=== PATIENT | male | born 1945 ===

== ENCOUNTER 2021-08-13 17:19 | Inpatient (IN) ==
[2021-08-13] MEDS ORDERED: Artificial Tears SOLN 15 ML BOTTLE BOTH EYES PRN (20:19)
[2021-08-13] MEDS ORDERED: Naloxone 0.4 MG/ML INJ IVP PRN (20:19)
[2021-08-13] MEDS ORDERED: Dexamethasone Sodium Phos/PF 10 MG/ML VIAL IVP ONE (20:19)
[2021-08-13] MEDS ORDERED: Ondansetron 4 MG/2 ML VIAL IVP PRN (20:19)
[2021-08-13] MEDS: Pantoprazole 40 MG VIAL IVP SCH (20:45)
[2021-08-13] MEDS: Chlorhexidine Rinse 15 ML MOUTHWASH MM SCH (20:45)
[2021-08-13] MEDS: D5% in Water 1,000 ML IVC SCH (20:46)
[2021-08-13] MEDS: FentaNYL (PF) 1,000 MCG/100 ML IV.SOLN IVC SCH (20:46)
[2021-08-13] MEDS: Dexmedetomidine HCl 400 MCG/100 ML MLS IVC SCH (20:47)
[2021-08-13 22:07] LABS: Hematocrit 44.3 % (37.5-50.1); Hemoglobin 14.2 g/dL (12.9-16.9); Mean Corpuscular HGB Conc 32.1 g/dL (31.6-35.5); Mean Corpuscular Hemoglobin 31.5 pg (28.0-33.3); Mean Corpuscular Volume 98.2 fL (83.0-100.0); Platelet Count 202 K/mcL (140-400); Red Blood Count 4.51 M/mcL (4.19-5.50); Red Cell Distribution Width 13.9 % (11.5-14.5); White Blood Count 12.2 K/mcL (4.3-11.1)
[2021-08-13] MEDS: Norepinephrine 4 MG/254 ML IV.SOLN IVC SCH (22:08)
[2021-08-13 22:10] LABS: ABG Base Excess 4 mEq/L (-2 to 3); ABG HCO3 25 mEq/L (21-27); ABG Oxygen Saturation 100 % (95-98); ABG PCO2 27 mmHg (35-45); ABG PH 7.57 pH Units (7.32-7.45); ABG PO2 390 mmHg (85-104); ABG TCO2 25 mEq/L (20-26); Blood Gas Modality AF; Blood Gas VT 550 cc
[2021-08-13] MEDS ORDERED: Phenylephrine 10 MG in 0.9 % Sodium Chloride 250 ML IVC SCH (22:15)
[2021-08-13] MEDS ORDERED: Perflutren Lipid Microsphere 1.3 ML in 0.9 % Sodium Chloride 8.7 ML IVP PRN (22:21)
[2021-08-13 22:29] LABS: Albumin 3.5 g/dL (3.5-5.7); Albumin/Globulin Ratio 1.3 (1.1-2.2); Bilirubin,Total 1.2 mg/dL (0.3-1.0); Calcium 8.1 mg/dL (8.6-10.3); Globulin 2.8 g/dL (2.4-3.5); Potassium 3.9 mEq/L (3.5-5.1); Total Protein 6.3 g/dL (6.4-8.9)
[2021-08-13] MEDS: Vasopressin 40 UNIT in D5% in Water 100 ML IVC SCH (22:42)
[2021-08-13] MEDS: Azithromycin 500 MG in 0.9 % Sodium Chloride 250 ML IVPB SCH (22:55)
[2021-08-13] MEDS: cefTRIAXone 1,000 MG in 0.9 % Sodium Chloride Mini Bag 100 ML IVPB SCH (22:57)
[2021-08-13] MEDS: Artificial Tears SOLN 15 ML BOTTLE BOTH EYES SCH (22:57)
[2021-08-13 23:55] LABS: Phosphorous 3.6 mg/dL (2.7-4.5)
[2021-08-14 00:55] LABS: Influenza A PCR Negative (Negative); Influenza B PCR Negative (Negative); Resp. Syncytial Virus PCR Negative (Negative)
[2021-08-14] MEDS: Norepinephrine 4 MG/254 ML IV.SOLN IVC SCH ×2 (01:15→06:33)
[2021-08-14 01:16] LABS: SARS-CoV-2 by PCR (In House) Positive (Negative)
[2021-08-14] MEDS: FentaNYL (PF) 1,000 MCG/100 ML IV.SOLN IVC SCH ×5 (02:09→23:07)
[2021-08-14] MEDS: Artificial Tears SOLN 15 ML BOTTLE BOTH EYES SCH ×6 (03:33→23:08)
[2021-08-14] MEDS: Insulin LISPRO 300 UNITS/3 ML VIAL SUBQ SCH ×6 (04:10→23:25)
[2021-08-14 04:21] LABS: Basophils # 0.1 K/mcL (0.0-0.2); Basophils % 0.3 %; Eosinophils # 0.1 K/mcL (0.0-0.6); Eosinophils % 0.2 %; Hematocrit 42.6 % (37.5-50.1); Hemoglobin 13.8 g/dL (12.9-16.9); Immature Granulocytes % 0.9 % (0-4); Lymphocytes # 1.2 K/mcL (0.6-4.6); Lymphocytes % 5.4 %; Mean Corpuscular HGB Conc 32.4 g/dL (31.6-35.5); Mean Corpuscular Hemoglobin 31.9 pg (28.0-33.3); Mean Corpuscular Volume 98.6 fL (83.0-100.0); Mean Platelet Volume 10.4 fL (9.4-12.4); Monocytes # 2.2 K/mcL (0.0-1.3); Monocytes % 9.7 %; Platelet Count 231 K/mcL (140-400); Red Blood Count 4.32 M/mcL (4.19-5.50); Red Cell Distribution Width 13.8 % (11.5-14.5); Segmented Neutrophils % 83.5 %; White Blood Count 22.7 K/mcL (4.3-11.1)
[2021-08-14 04:39] LABS: Calcium 7.9 mg/dL (8.6-10.3); Magnesium 1.7 mg/dL (1.6-2.6); Potassium 4.7 mEq/L (3.5-5.1)
[2021-08-14 04:44] LABS: Troponin I 3.52 ng/mL (< 0.04)
[2021-08-14] MEDS ORDERED: *HR* Heparin 5,000 UNIT/ML VIAL IVP ONE (04:45)
[2021-08-14] MEDS ORDERED: *HR* Heparin 5,000 UNIT/ML VIAL IVP PRN ×2 (04:45)
[2021-08-14 04:52] LABS: ABG Base Excess -4 mEq/L (-2 to 3); ABG HCO3 21 mEq/L (21-27); ABG Oxygen Saturation 97 % (95-98); ABG PCO2 38 mmHg (35-45); ABG PH 7.36 pH Units (7.32-7.45); ABG PO2 99 mmHg (85-104); ABG TCO2 22 mEq/L (20-26); Blood Gas Modality AF; Blood Gas VT 500 cc
[2021-08-14 05:08] LABS: INR 1.3; Prothrombin Time 14.3 Seconds (9.4-12.1)
[2021-08-14 05:11] LABS: Activated Partial Thrombo Time 31.1 Seconds (26.0-36.0)
[2021-08-14] MEDS: Dexmedetomidine HCl 400 MCG/100 ML MLS IVC SCH (05:11)
[2021-08-14] MEDS: Heparin 25,000UNIT/250ML 1/2NS 25,000 UNIT/250 ML IV.SOLN IVC SCH ×2 (05:43→19:29)
[2021-08-14] MEDS: Pantoprazole 40 MG VIAL IVP SCH (08:14)
[2021-08-14] MEDS: Chlorhexidine Rinse 15 ML MOUTHWASH MM SCH ×2 (08:14→19:29)
[2021-08-14] MEDS ORDERED: *HR* Rocuronium Bromide 50 MG/5 ML VIAL IVP ONE (10:59)
[2021-08-14] MEDS ORDERED: *HR* Midazolam HCl 5 MG/5 ML VIAL IVP ONE (10:59)
[2021-08-14] MEDS: D5% in Water 1,000 ML IVC SCH ×2 (19:24→19:25)
[2021-08-14] MEDS: Vasopressin 40 UNIT in D5% in Water 100 ML IVC SCH (19:25)
[2021-08-14] MEDS: cefTRIAXone 1,000 MG in 0.9 % Sodium Chloride Mini Bag 100 ML IVPB SCH (23:07)
[2021-08-14] MEDS: Azithromycin 500 MG in 0.9 % Sodium Chloride 250 ML IVPB SCH (23:07)
[2021-08-15 00:09] LABS: ABG Base Excess 0 mEq/L (-2 to 3); ABG HCO3 25 mEq/L (21-27); ABG Oxygen Saturation 99 % (95-98); ABG PCO2 41 mmHg (35-45); ABG PH 7.39 pH Units (7.32-7.45); ABG PO2 128 mmHg (85-104); ABG TCO2 26 mEq/L (20-26); Blood Gas VT 550 cc
[2021-08-15 00:35] LABS: Basophils # 0.1 K/mcL (0.0-0.2); Basophils % 0.3 %; Hematocrit 42.4 % (37.5-50.1); Hemoglobin 13.9 g/dL (12.9-16.9); Immature Granulocytes % 0.8 % (0-4); Lymphocytes # 2.2 K/mcL (0.6-4.6); Lymphocytes % 12.1 %; Mean Corpuscular HGB Conc 32.8 g/dL (31.6-35.5); Mean Corpuscular Hemoglobin 31.4 pg (28.0-33.3); Mean Corpuscular Volume 95.9 fL (83.0-100.0); Monocytes # 1.5 K/mcL (0.0-1.3); Monocytes % 8.2 %; Neutrophils # 14.4 K/mcL (1.6-8.9); Platelet Count 202 K/mcL (140-400); Red Blood Count 4.42 M/mcL (4.19-5.50); Red Cell Distribution Width 13.3 % (11.5-14.5); Segmented Neutrophils % 78.6 %; White Blood Count 18.3 K/mcL (4.3-11.1)
[2021-08-15 00:48] LABS: ABG Ionized Calcium 1.02 mmol/L (1.15-1.35)
[2021-08-15 00:49] LABS: Heparin anti-factor XA UFH 0.72 IU/mL (0.30-0.70)
[2021-08-15 00:50] LABS: INR 1.2; Prothrombin Time 13.8 Seconds (9.4-12.1)
[2021-08-15 00:57] LABS: Calcium 7.9 mg/dL (8.6-10.3); Magnesium 2.3 mg/dL (1.6-2.6); Phosphorous 3.1 mg/dL (2.7-4.5); Potassium 3.8 mEq/L (3.5-5.1)
[2021-08-15 01:09] LABS: Thyroid Stimulating Hormone 0.269 mcIU/mL (0.340-5.600)
[2021-08-15] MEDS: Dexmedetomidine HCl 400 MCG/100 ML MLS IVC SCH ×2 (03:08→17:53)
[2021-08-15] MEDS: Heparin 25,000UNIT/250ML 1/2NS 25,000 UNIT/250 ML IV.SOLN IVC SCH (04:10)
[2021-08-15] MEDS: Artificial Tears SOLN 15 ML BOTTLE BOTH EYES SCH ×6 (04:12→23:38)
[2021-08-15] MEDS: FentaNYL (PF) 1,000 MCG/100 ML IV.SOLN IVC SCH ×3 (04:17→16:45)
[2021-08-15] MEDS: Insulin LISPRO 300 UNITS/3 ML VIAL SUBQ SCH ×6 (04:23→23:38)
[2021-08-15 04:25] LABS: ABG Base Excess 1 mEq/L (-2 to 3); ABG HCO3 25 mEq/L (21-27); ABG Oxygen Saturation 99 % (95-98); ABG PCO2 36 mmHg (35-45); ABG PH 7.45 pH Units (7.32-7.45); ABG PO2 118 mmHg (85-104); ABG TCO2 26 mEq/L (20-26); Blood Gas Modality ASSIST CONTROL; Blood Gas VT 550 cc
[2021-08-15] MEDS: Chlorhexidine Rinse 15 ML MOUTHWASH MM SCH ×2 (09:03→20:26)
[2021-08-15] MEDS: Dexamethasone Sodium Phos/PF 10 MG/ML VIAL IVP SCH (09:03)
[2021-08-15] MEDS: Pantoprazole 40 MG VIAL IVP SCH (09:04)
[2021-08-15] MEDS: Norepinephrine 4 MG/254 ML IV.SOLN IVC SCH ×2 (11:39→20:00)
[2021-08-15] MEDS ORDERED: Furosemide 40 MG/4 ML VIAL IVP ONE (14:25)
[2021-08-15] MEDS: Vasopressin 40 UNIT in D5% in Water 100 ML IVC SCH (20:27)
[2021-08-15] MEDS: D5% in Water 1,000 ML IVC SCH (20:27)
[2021-08-15] MEDS: Azithromycin 500 MG in 0.9 % Sodium Chloride 250 ML IVPB SCH (23:38)
[2021-08-15] MEDS: cefTRIAXone 1,000 MG in 0.9 % Sodium Chloride Mini Bag 100 ML IVPB SCH (23:38)
[2021-08-16 03:55] LABS: VBG Ionized Calcium 1.05 mmol/L (1.15-1.35)
[2021-08-16 03:58] LABS: Basophils % 0.2 %; Hematocrit 37.4 % (37.5-50.1); Hemoglobin 12.3 g/dL (12.9-16.9); Immature Granulocytes % 0.9 % (0-4); Lymphocytes # 1.1 K/mcL (0.6-4.6); Lymphocytes % 7.2 %; Mean Corpuscular HGB Conc 32.9 g/dL (31.6-35.5); Mean Corpuscular Hemoglobin 31.2 pg (28.0-33.3); Mean Corpuscular Volume 94.9 fL (83.0-100.0); Mean Platelet Volume 10.2 fL (9.4-12.4); Monocytes # 1.3 K/mcL (0.0-1.3); Monocytes % 8.4 %; Neutrophils # 12.7 K/mcL (1.6-8.9); Platelet Count 214 K/mcL (140-400); Red Blood Count 3.94 M/mcL (4.19-5.50); Red Cell Distribution Width 13.4 % (11.5-14.5); Segmented Neutrophils % 83.3 %; White Blood Count 15.2 K/mcL (4.3-11.1)
[2021-08-16] MEDS: D5% in Water 1,000 ML IVC SCH ×2 (04:02→19:30)
[2021-08-16] MEDS: FentaNYL (PF) 1,000 MCG/100 ML IV.SOLN IVC SCH (04:03)
[2021-08-16] MEDS: Insulin LISPRO 300 UNITS/3 ML VIAL SUBQ SCH ×6 (04:03→23:48)
[2021-08-16] MEDS: Artificial Tears SOLN 15 ML BOTTLE BOTH EYES SCH ×2 (04:03→07:16)
[2021-08-16 04:11] LABS: ABG Base Excess -1 mEq/L (-2 to 3); ABG HCO3 24 mEq/L (21-27); ABG Oxygen Saturation 97 % (95-98); ABG PCO2 39 mmHg (35-45); ABG PO2 92 mmHg (85-104); ABG TCO2 25 mEq/L (20-26); Blood Gas VT 550 cc
[2021-08-16 04:19] LABS: Albumin 3.1 g/dL (3.5-5.7); Bilirubin,Total 0.8 mg/dL (0.3-1.0); Calcium 7.8 mg/dL (8.6-10.3); Globulin 3.1 g/dL (2.4-3.5); Magnesium 2.2 mg/dL (1.6-2.6); Phosphorous 3.1 mg/dL (2.7-4.5); Potassium 4.5 mEq/L (3.5-5.1); Total Protein 6.2 g/dL (6.4-8.9)
[2021-08-16 04:46] LABS: Triiodothyronine (T3) Free 2.19 pg/mL (2.50-3.90)
[2021-08-16] MEDS: Heparin 25,000UNIT/250ML 1/2NS 25,000 UNIT/250 ML IV.SOLN IVC SCH (06:09)
[2021-08-16] MEDS: Calcium Gluconate 1gm/50mL 1 GM/50 ML BAG IVPB PRN (06:09)
[2021-08-16] MEDS: Pantoprazole 40 MG VIAL IVP SCH (07:15)
[2021-08-16] MEDS: Chlorhexidine Rinse 15 ML MOUTHWASH MM SCH ×2 (07:15→19:50)
[2021-08-16] MEDS: Dexamethasone Sodium Phos/PF 10 MG/ML VIAL IVP SCH (07:16)
[2021-08-16] MEDS ORDERED: *HR* Labetalol 20 MG/4 ML SYRINGE IVP ONE ×2 (07:28→07:31)
[2021-08-16] MEDS ORDERED: Furosemide 20 MG/2 ML VIAL IVP ONE (09:41)
[2021-08-16] MEDS: Norepinephrine 4 MG/254 ML IV.SOLN IVC SCH (19:30)
[2021-08-16] MEDS: Vasopressin 40 UNIT in D5% in Water 100 ML IVC SCH (19:30)
[2021-08-16] MEDS: Dexmedetomidine HCl 400 MCG/100 ML MLS IVC SCH (19:31)
[2021-08-16] MEDS: *HR* Enoxaparin 40 MG/0.4 ML SYRINGE SQ SCH (19:58)
[2021-08-16] MEDS: Azithromycin 500 MG in 0.9 % Sodium Chloride 250 ML IVPB SCH (23:23)
[2021-08-16] MEDS: cefTRIAXone 1,000 MG in 0.9 % Sodium Chloride Mini Bag 100 ML IVPB SCH (23:23)
[2021-08-17] MEDS: Insulin LISPRO 300 UNITS/3 ML VIAL SUBQ SCH ×4 (04:17→16:36)
[2021-08-17] MEDS: Norepinephrine 4 MG/254 ML IV.SOLN IVC SCH (04:18)
[2021-08-17] MEDS: D5% in Water 1,000 ML IVC SCH (04:18)
[2021-08-17 04:36] LABS: VBG Ionized Calcium 1.09 mmol/L (1.15-1.35)
[2021-08-17 04:44] LABS: Basophils # 0.1 K/mcL (0.0-0.2); Basophils % 0.4 %; Hematocrit 39.4 % (37.5-50.1); Hemoglobin 12.6 g/dL (12.9-16.9); Immature Granulocytes % 2.7 % (0-4); Lymphocytes % 8.4 %; Mean Platelet Volume 10.4 fL (9.4-12.4); Monocytes % 8.8 %; Neutrophils # 9.2 K/mcL (1.6-8.9); Platelet Count 232 K/mcL (140-400); Red Blood Count 4.06 M/mcL (4.19-5.50); Red Cell Distribution Width 13.5 % (11.5-14.5); Segmented Neutrophils % 79.7 %; White Blood Count 11.6 K/mcL (4.3-11.1)
[2021-08-17 05:01] LABS: Albumin 3.4 g/dL (3.5-5.7); Albumin/Globulin Ratio 1.1 (1.1-2.2); Bilirubin,Total 0.9 mg/dL (0.3-1.0); Calcium 8.5 mg/dL (8.6-10.3); Globulin 3.2 g/dL (2.4-3.5); Magnesium 2.4 mg/dL (1.6-2.6); Phosphorous 2.7 mg/dL (2.7-4.5); Potassium 4.4 mEq/L (3.5-5.1); Total Protein 6.6 g/dL (6.4-8.9)
[2021-08-17] MEDS: Calcium Gluconate 1gm/50mL 1 GM/50 ML BAG IVPB PRN (05:12)
[2021-08-17] MEDS: Chlorhexidine Rinse 15 ML MOUTHWASH MM SCH (07:08)
[2021-08-17] MEDS: *HR* Enoxaparin 40 MG/0.4 ML SYRINGE SQ SCH ×2 (07:08→22:10)
[2021-08-17] MEDS: Dexamethasone Sodium Phos/PF 10 MG/ML VIAL IVP SCH (07:08)
[2021-08-17] MEDS: Pantoprazole 40 MG VIAL IVP SCH (07:09)
[2021-08-17] MEDS ORDERED: amLODIPine 5 MG TABLET PO SCH (09:00)
[2021-08-17] MEDS ORDERED: Artificial Tears SOLN 15 ML BOTTLE BOTH EYES PRN (09:40)
[2021-08-17] MEDS ORDERED: Ondansetron 4 MG/2 ML VIAL IVP PRN (09:40)
[2021-08-17] MEDS ORDERED: Naloxone 0.4 MG/ML INJ IVP PRN (09:40)
[2021-08-17] MEDS: Ipratropium 1 PUFF INHALER IH SCH ×5 (11:15→23:43)
[2021-08-17] MEDS ORDERED: *HR* Labetalol 20 MG/4 ML SYRINGE IVP PRN ×2 (13:05→13:06)
[2021-08-17] MEDS: Aspirin 81 MG TAB.CHEW PO SCH (15:44)
[2021-08-17] MEDS ORDERED: D5% in Water 1,000 ML IVC PRN (21:25)
[2021-08-17] MEDS ORDERED: *HR* Dextrose 50 % in Water (Syg) 50 ML SYRINGE IVP PRN (21:25)
[2021-08-17] MEDS ORDERED: Dextrose Gel 15 GM/37.5 ML TUBE PO PRN ×2 (21:25)
[2021-08-17] MEDS: cefTRIAXone 1,000 MG in 0.9 % Sodium Chloride Mini Bag 100 ML IVPB SCH (22:11)
[2021-08-17] MEDS ORDERED: Azithromycin 500 MG in 0.9 % Sodium Chloride 250 ML IVPB SCH (23:00)
[2021-08-18] MEDS: Ipratropium 1 PUFF INHALER IH SCH ×5 (03:45→19:56)
[2021-08-18] MEDS: Insulin LISPRO 300 UNITS/3 ML VIAL SUBQ SCH ×4 (07:46→19:46)
[2021-08-18] MEDS: Dexamethasone Sodium Phos/PF 10 MG/ML VIAL IVP SCH (08:13)
[2021-08-18] MEDS: *HR* Enoxaparin 40 MG/0.4 ML SYRINGE SQ SCH ×2 (08:13→19:47)
[2021-08-18] MEDS: Aspirin 81 MG TAB.CHEW PO SCH (08:14)
[2021-08-18] MEDS: amLODIPine 5 MG TABLET PO SCH (08:14)
[2021-08-18 11:42] LABS: Basophils % 0.1 %; Hematocrit 44.3 % (37.5-50.1); Immature Granulocytes % 7.1 % (0-4); Lymphocytes # 0.9 K/mcL (0.6-4.6); Lymphocytes % 6.2 %; Mean Corpuscular HGB Conc 32.5 g/dL (31.6-35.5); Mean Corpuscular Hemoglobin 31.4 pg (28.0-33.3); Mean Corpuscular Volume 96.5 fL (83.0-100.0); Mean Platelet Volume 9.8 fL (9.4-12.4); Monocytes # 1.5 K/mcL (0.0-1.3); Monocytes % 9.8 %; Neutrophils # 11.6 K/mcL (1.6-8.9); Platelet Count 264 K/mcL (140-400); Red Blood Count 4.59 M/mcL (4.19-5.50); Red Cell Distribution Width 13.6 % (11.5-14.5); Segmented Neutrophils % 76.8 %; White Blood Count 15.1 K/mcL (4.3-11.1)
[2021-08-18 11:47] LABS: VBG Ionized Calcium 1.07 mmol/L (1.15-1.35)
[2021-08-18 11:56] LABS: Hemoglobin 14.4 g/dL (12.9-16.9)
[2021-08-18 12:02] LABS: Albumin 3.6 g/dL (3.5-5.7); Bilirubin,Total 1.2 mg/dL (0.3-1.0); Globulin 3.6 g/dL (2.4-3.5); Magnesium 2.4 mg/dL (1.6-2.6); Phosphorous 2.6 mg/dL (2.7-4.5); Potassium 4.4 mEq/L (3.5-5.1); Total Protein 7.2 g/dL (6.4-8.9)
[2021-08-18 12:32] LABS: Platelet Estimate Normal (Normal)
[2021-08-18] MEDS: cefTRIAXone 1,000 MG in 0.9 % Sodium Chloride Mini Bag 100 ML IVPB SCH (22:52)
[2021-08-19] MEDS: Ipratropium 1 PUFF INHALER IH SCH ×7 (00:16→23:47)
[2021-08-19 05:27] LABS: Hematocrit 45.4 % (37.5-50.1); Hemoglobin 14.8 g/dL (12.9-16.9); Mean Corpuscular HGB Conc 32.6 g/dL (31.6-35.5); Mean Corpuscular Hemoglobin 31.5 pg (28.0-33.3); Mean Corpuscular Volume 96.6 fL (83.0-100.0); Mean Platelet Volume 10.3 fL (9.4-12.4); Platelet Count 334 K/mcL (140-400); Red Cell Distribution Width 13.5 % (11.5-14.5); White Blood Count 17.3 K/mcL (4.3-11.1)
[2021-08-19 05:48] LABS: Albumin 3.6 g/dL (3.5-5.7); Bilirubin,Total 1.1 mg/dL (0.3-1.0); Calcium 9.1 mg/dL (8.6-10.3); Globulin 3.7 g/dL (2.4-3.5); Magnesium 2.4 mg/dL (1.6-2.6); Phosphorous 2.8 mg/dL (2.7-4.5); Potassium 4.1 mEq/L (3.5-5.1); Total Protein 7.3 g/dL (6.4-8.9)
[2021-08-19 05:52] LABS: Lymphocytes # 0.9 K/mcL (0.6-4.6); Monocytes # 1.9 K/mcL (0.0-1.3); Neutrophils # 14.4 K/mcL (1.6-8.9)
[2021-08-19 05:53] LABS: Platelet Estimate Normal (Normal)
[2021-08-19] MEDS: amLODIPine 5 MG TABLET PO SCH (07:48)
[2021-08-19] MEDS: Aspirin 81 MG TAB.CHEW PO SCH (07:48)
[2021-08-19] MEDS: Dexamethasone Sodium Phos/PF 10 MG/ML VIAL IVP SCH (07:49)
[2021-08-19] MEDS: *HR* Enoxaparin 40 MG/0.4 ML SYRINGE SQ SCH ×2 (07:49→19:39)
[2021-08-19] MEDS: Insulin LISPRO 300 UNITS/3 ML VIAL SUBQ SCH ×4 (07:49→19:40)
[2021-08-19] MEDS ORDERED: carvediloL 6.25 MG TABLET PO SCH (08:00)
[2021-08-19] MEDS ORDERED: carvediloL 6.25 MG TABLET PO ONE (08:17)
[2021-08-19] MEDS ORDERED: *HR* HYDROcodone/Acet 5/325 mg TABLET PO PRN (16:15)
[2021-08-19] MEDS ORDERED: *HR* OxyCODONE Immed Rel 5 MG TABLET PO PRN (16:15)
[2021-08-19] MEDS: carvediloL 6.25 MG TABLET PO SCH (16:47)
[2021-08-20] MEDS: Ipratropium 1 PUFF INHALER IH SCH ×6 (03:50→23:15)
[2021-08-20] MEDS: carvediloL 6.25 MG TABLET PO SCH ×2 (08:10→16:28)
[2021-08-20] MEDS: amLODIPine 5 MG TABLET PO SCH (08:10)
[2021-08-20] MEDS: Aspirin 81 MG TAB.CHEW PO SCH (08:10)
[2021-08-20] MEDS: *HR* Enoxaparin 40 MG/0.4 ML SYRINGE SQ SCH ×2 (08:11→21:20)
[2021-08-20] MEDS: Dexamethasone Sodium Phos/PF 10 MG/ML VIAL IVP SCH (08:11)
[2021-08-20] MEDS: Insulin LISPRO 300 UNITS/3 ML VIAL SUBQ SCH ×4 (08:11→21:20)
[2021-08-20 08:55] LABS: VBG Ionized Calcium 1.06 mmol/L (1.15-1.35)
[2021-08-20 09:07] LABS: Albumin 3.4 g/dL (3.5-5.7); Bilirubin,Total 1.1 mg/dL (0.3-1.0); Globulin 3.5 g/dL (2.4-3.5); Magnesium 2.4 mg/dL (1.6-2.6); Phosphorous 3.3 mg/dL (2.7-4.5); Potassium 4.4 mEq/L (3.5-5.1); Total Protein 6.9 g/dL (6.4-8.9)
[2021-08-20 16:12] LABS: Hematocrit 42.9 % (37.5-50.1); Hemoglobin 13.6 g/dL (12.9-16.9); Mean Corpuscular HGB Conc 31.7 g/dL (31.6-35.5); Mean Corpuscular Volume 97.7 fL (83.0-100.0); Mean Platelet Volume 10.3 fL (9.4-12.4); Platelet Count 375 K/mcL (140-400); Red Blood Count 4.39 M/mcL (4.19-5.50); Red Cell Distribution Width 13.4 % (11.5-14.5); White Blood Count 18.9 K/mcL (4.3-11.1)
[2021-08-20 16:46] LABS: Lymphocytes # 1.7 K/mcL (0.6-4.6); Monocytes # 2.1 K/mcL (0.0-1.3)
[2021-08-20 16:47] LABS: Platelet Estimate Normal (Normal); Toxic Granulation Present (Not Present)
[2021-08-21] MEDS: Ipratropium 1 PUFF INHALER IH SCH ×6 (03:25→23:57)
[2021-08-21] MEDS ORDERED: GuaiFENesin Liq 200 MG/10 ML UDC PO PRN (09:49)
[2021-08-21] MEDS ORDERED: Saline Nasal Spray 44 ML BOTTLE NS PRN (09:50)
[2021-08-21 10:07] LABS: Hemoglobin 14.5 g/dL (12.9-16.9); Lymphocytes # 2.1 K/mcL (0.6-4.6); Mean Corpuscular Hemoglobin 31.9 pg (28.0-33.3); Mean Corpuscular Volume 96.9 fL (83.0-100.0); Mean Platelet Volume 10.3 fL (9.4-12.4); Platelet Count 419 K/mcL (140-400); Red Blood Count 4.54 M/mcL (4.19-5.50); Red Cell Distribution Width 13.2 % (11.5-14.5); White Blood Count 19.2 K/mcL (4.3-11.1)
[2021-08-21 10:11] LABS: VBG Ionized Calcium 1.19 mmol/L (1.15-1.35)
[2021-08-21 10:22] LABS: Albumin 3.4 g/dL (3.5-5.7); Bilirubin,Total 1.1 mg/dL (0.3-1.0); Calcium 9.2 mg/dL (8.6-10.3); Globulin 3.4 g/dL (2.4-3.5); Magnesium 2.2 mg/dL (1.6-2.6); Phosphorous 3.2 mg/dL (2.7-4.5); Potassium 4.5 mEq/L (3.5-5.1); Total Protein 6.8 g/dL (6.4-8.9)
[2021-08-21] MEDS: Insulin LISPRO 300 UNITS/3 ML VIAL SUBQ SCH ×4 (10:22→21:12)
[2021-08-21] MEDS: *HR* Enoxaparin 40 MG/0.4 ML SYRINGE SQ SCH (10:22)
[2021-08-21] MEDS: carvediloL 6.25 MG TABLET PO SCH ×2 (10:23→17:02)
[2021-08-21] MEDS: amLODIPine 5 MG TABLET PO SCH (10:23)
[2021-08-21] MEDS: Dexamethasone Sodium Phos/PF 10 MG/ML VIAL IVP SCH (10:23)
[2021-08-21] MEDS: Aspirin 81 MG TAB.CHEW PO SCH (10:23)
[2021-08-21] MEDS: Insulin DETEMIR 100 UNIT/ML X5UNITS SUBQ SCH (10:25)
[2021-08-21 11:33] LABS: Monocytes # 1.2 K/mcL (0.0-1.3); Neutrophils # 14.2 K/mcL (1.6-8.9)
[2021-08-21 11:37] LABS: Reactive Lymphocytes Present (Not Present)
[2021-08-21 11:38] LABS: Polychromasia 1+ (Not Present)
[2021-08-22] MEDS: Ipratropium 1 PUFF INHALER IH SCH ×6 (04:22→23:47)
[2021-08-22 05:12] LABS: Basophils % 0.1 %; Eosinophils % 0.1 %; Hematocrit 41.9 % (37.5-50.1); Immature Granulocytes % 18.5 % (0-4); Lymphocytes # 2.5 K/mcL (0.6-4.6); Lymphocytes % 10.9 %; Mean Corpuscular HGB Conc 33.4 g/dL (31.6-35.5); Mean Corpuscular Hemoglobin 32.2 pg (28.0-33.3); Mean Corpuscular Volume 96.3 fL (83.0-100.0); Mean Platelet Volume 10.2 fL (9.4-12.4); Monocytes # 1.7 K/mcL (0.0-1.3); Monocytes % 7.4 %; Neutrophils # 14.2 K/mcL (1.6-8.9); Platelet Count 424 K/mcL (140-400); Red Blood Count 4.35 M/mcL (4.19-5.50); White Blood Count 22.6 K/mcL (4.3-11.1)
[2021-08-22] MEDS: *HR* Enoxaparin 40 MG/0.4 ML SYRINGE SQ SCH (05:12)
[2021-08-22 05:20] LABS: VBG Ionized Calcium 1.17 mmol/L (1.15-1.35)
[2021-08-22 05:31] LABS: Albumin 3.4 g/dL (3.5-5.7); Calcium 9.1 mg/dL (8.6-10.3); Globulin 3.3 g/dL (2.4-3.5); Magnesium 2.2 mg/dL (1.6-2.6); Phosphorous 4.1 mg/dL (2.7-4.5); Potassium 4.8 mEq/L (3.5-5.1); Total Protein 6.7 g/dL (6.4-8.9)
[2021-08-22 05:37] LABS: Reactive Lymphocytes Present (Not Present)
[2021-08-22] MEDS: Insulin DETEMIR 100 UNIT/ML X5UNITS SUBQ SCH (07:23)
[2021-08-22] MEDS: Aspirin 81 MG TAB.CHEW PO SCH (07:24)
[2021-08-22] MEDS: carvediloL 6.25 MG TABLET PO SCH ×2 (07:24→16:58)
[2021-08-22] MEDS: Dexamethasone Sodium Phos/PF 10 MG/ML VIAL IVP SCH (07:24)
[2021-08-22] MEDS: amLODIPine 5 MG TABLET PO SCH (07:24)
[2021-08-22] MEDS: Insulin LISPRO 300 UNITS/3 ML VIAL SUBQ SCH ×4 (07:25→21:48)
[2021-08-23 01:00] LABS: VBG Ionized Calcium 1.14 mmol/L (1.15-1.35)
[2021-08-23 01:02] LABS: Mean Platelet Volume 10.3 fL (9.4-12.4); Nucleated Red Blood Cells 0.1 /100 WBC (0)
[2021-08-23 01:04] LABS: Hematocrit 42.6 % (37.5-50.1); Mean Corpuscular HGB Conc 32.9 g/dL (31.6-35.5); Mean Corpuscular Hemoglobin 31.2 pg (28.0-33.3); Mean Corpuscular Volume 94.9 fL (83.0-100.0); Platelet Count 446 K/mcL (140-400); Red Blood Count 4.49 M/mcL (4.19-5.50)
[2021-08-23 01:27] LABS: Albumin 3.4 g/dL (3.5-5.7); Bilirubin,Total 0.9 mg/dL (0.3-1.0); Globulin 3.3 g/dL (2.4-3.5); Magnesium 2.1 mg/dL (1.6-2.6); Potassium 4.7 mEq/L (3.5-5.1); Total Protein 6.7 g/dL (6.4-8.9)
[2021-08-23 02:30] LABS: Lymphocytes # 3.8 K/mcL (0.6-4.6); Monocytes # 1.6 K/mcL (0.0-1.3); Neutrophils # 21.6 K/mcL (1.6-8.9); Reactive Lymphocytes Present (Not Present)
[2021-08-23 02:31] LABS: Platelet Estimate Normal (Normal)
[2021-08-23] MEDS: Ipratropium 1 PUFF INHALER IH SCH ×4 (04:19→15:41)
[2021-08-23] MEDS: *HR* Enoxaparin 40 MG/0.4 ML SYRINGE SQ SCH (05:39)
[2021-08-23] MEDS: Insulin LISPRO 300 UNITS/3 ML VIAL SUBQ SCH ×2 (07:52→11:16)
[2021-08-23] MEDS: amLODIPine 5 MG TABLET PO SCH (07:52)
[2021-08-23] MEDS: Insulin DETEMIR 100 UNIT/ML X5UNITS SUBQ SCH (07:52)
[2021-08-23] MEDS: Aspirin 81 MG TAB.CHEW PO SCH (07:52)
[2021-08-23] MEDS: carvediloL 6.25 MG TABLET PO SCH (07:52)
[2021-08-23] MEDS: Dexamethasone Sodium Phos/PF 10 MG/ML VIAL IVP SCH (07:53)
== END 2021-08-23 17:37 | disposition home health service (06) | DRG 208 ==
LOC: ICNU 19:02 → SUATTDRO 19:02 → 2NENU 08-17 14:51
PROVIDERS: ADMIT Internal Medicine; ATTEND Internal Medicine